=== PATIENT | female | born 1980 | race Caucasian/White ===

== ENCOUNTER 2022-11-17 06:07 | Day surgery (SDC) | payer BC, MEDICAID, SELFPAY ==
[2022-11-17] VITALS (8 sets, daily range): BP systolic 73–107; BP diastolic 36–69; PULSE 48–76; RESP 16–18; TEMP 36.2–36.4; O2SAT 97–100; BMI 28.8
[2022-11-17] MEDS: Lactated Ringers 1,000 ML 15 ML IV (06:20)
--- NOTE | 2022-11-17 07:22 | PCM.HP.BLA ---
History and Physical Date of Admission: 11/17/22 [facility] [id number] [place] [address] OFFICE VISIT Date of Service:? 10/30/22 MR#: [id number] Acct: [id number] Name:YA HAMMONDS Rep #: [id number] : 1980 ? ? Provider: Dr. Shmuel Green, DO Age/Sex:? 42/F ? ? Location: [facility] [place].[facility] Status: Signed Intake Intake Visit Reasons:?BILAT HANDS Chief Complaint: left hand pain Is patient in pain?: Yes (left hand ) Pain scale (1-10): 5 Allergies bupropion HCl [From Wellbutrin] Allergy (Verified 11/28/15 15:30) Rash PFSH Surgical History? Hx of tubal ligation Family History? Grandmother CancerAunt CancerGrandfather Heart disease Social History? Smoking Status:? Current every day smoker tobacco type: cigarettes alcohol intake:? never HPI BILAT HANDS Chief Complaint: left hand pain Details: Parts of this documentation were recorded by a scribe, this documentation accurately reflects the service provided and the decisions made by me, Dr. Shmuel Green, DO 10/30/22 0807. YA GALLEGOS is a 42 year old F here today for EMG review. Pt. advises she continues to have bilateral hand pain, numbness and tingling but states the left hand is worse.? She rates her pain 5/10 today. she treats pain at home with Ibuprofen with mild relief. She occasionally wear the braces she was given at night but states they do not help much.? Her fingers on bilateral hands continue to swell intermittently. Ortho Exam General General: Yes no acute distress Neurologic: Yes alert and Yes oriented x3 Psychologic: Yes reasonable and appropriate Right Wrist/Hand Skin/Wound: No Ecchymosis and Yes capillary refill normal Right Wrist: Yes Durken's Test and Phalen's; No Tinel's, Thenar Atrophy or Hypothenar Atrophy WRIST: brisk capilary refill 2/4 radial pulse 2/4 ulnar pulse 5/5 abduction finger flexion and extension/ and wage adjuster strength Left Wrist/Hand Skin/Wound: No Ecchymosis, Yes capillary refill normal and No erythema Left Wrist: Yes Durken's Test, Yes Tinel's and Yes Phalen's; No Thenar Atrophy and No Hypothenar Atrophy WRIST: brisk capilary refill 2/4 radial pulse 2/4 ulnar pulse 5/5 abduction finger flexion and extension/ and wage adjuster strength Supplemental Info 07/21/2022 EMG bilateral upper extremity: Severe left carpal tunnel right mild carpal tunnel Coding Level of Care Code Off vis,est,level 3 Diagnoses Bilateral carpal tunnel syndrome? G56.03 Assessment and Plan Assessment and Plan (1) Bilateral carpal tunnel syndrome: ?Status:?Acute Plan Patient edcauted that she has severe carpal tunnel of the left wrist and mild carpal tunnel of the right wrist. Recommended a left carpal tunnel release with a right carpal tunnel injection. SHe wishes to proceed with this. Reviewed the pre-operative plans with the patient. Risks and benefits of the procedure were fully explained, including but not limited to infection, neurovascular injury, continued pain,? stiffness, need for further surgery, re-injury, DVT, PE, general risks of anesthesia. The patient understands all the risks and does wish to proceed with written consent. Smoking increases risk of infection and slows down healing.? We also discussed incisional hypersensitivity and pillar pain continued symptoms . Tentative surgery date November 17, 2022 for a left open carpal tunnel release right carpal tunnel injection. Follow up post op or sooner if pain, swelling, numbness or associated symptoms, or concerns develop.? All questions answered. Patient in agreement of plan. 10/30/22 1038 <Electronically signed by Shmuel Green DO> Date Shmuel Green DO Cosigner Signature: Date (if applicable) ? CC: ? ~I have examined the patient and the H&P has been reviewed. There are no clinical changes since date of exam.
[2022-11-17] MEDS: Cefazolin 2 GM in 0.9% Normal Saline 100 ML IV (07:26)
[2022-11-17] MEDS: Lidocaine 1% /Epi 1:100 (20ml) 20 ML Vial (07:41)
[2022-11-17] MEDS: MethylPREDNISolone Acetate 40 MG/ML Vial IM (07:54)
--- NOTE | 2022-11-17 08:03 | OP.PCM_ITS ---
Operative Report Date of Procedure: 11/17/22 Preoperative diagnosis; left carpal tunnel syndrome Postoperative diagnosis; same Procedure: Left open carpal tunnel release Anesthesia: Local with MAC Tourniquet time; 10 minutes 250 mm Hg Complications: None Indication for procedure; This is a 42-year-old female with long-standing sym ptoms consistent with carpal tunnel syndrome the patient did have electrodiagnostic evidence of this and has failed conservative treatment. Risks benefits and alternatives were reviewed including risks of bleeding infection nerve artery tissue damage need for further surgery and continued pain and symptoms, hypersensitivity to scar and Pillar pain. Procedure; The patient was met in the preoperative holding area the operative extremity was identified by both patient and physician and was marked the patient was met by anesthesia and brought back to the operating room and transferred to the operating table in the supine position. Anesthesia was started. A well-padded tourniquet was placed on the operative upper extremity. The patient was prepped and draped in the usual sterile fashion. A timeout was called to ensure the proper patient procedure and extremity were being contemplated. 0.5 percent lidocaine with epinephrine was injected into the incisional area. An Esmarch was used to exsanguinate the extremity. The tourniquet was inflated to 250 mmHg. A midline incision was made with a 15 blade scalpel between the thenar and hypothenar eminence. This was carried down through the skin and subcutaneous tissue. Nelson retractors were then used, a deep blade scalpel was used to make a deep incision in the palmar aponeurosis. The nelson retractors were then placed deep to this and the transverse carpal ligament was identified a perforation was made with a scalpel and a Littler scissors were used to complete the release of the transverse carpal ligament distally under direct visualization with the tips facing ulnarly until the perivascular fat was reached. Then turning our attention proximally using a tension slide technique the proximal extent of the transverse carpal ligament was released . There was noted to be hypertrophy of the transverse carpal ligament without other findings. The wound was thoroughly irrigated and was closed with 4-0 nylon vertical mattress stitches. Dressing was applied in the form of xeroform 4 x 4, web roll and an henrique wrap. Tourniquet was let down there is no intraoperative complications patient tolerated the procedure well and was transferred to the PACU. All counts were correct.
--- NOTE | 2022-11-17 08:04 | DCINST_ITS ---
Discharge Instructions Diet Discharge Diet: No restrictions Dressing / Incision Call your doctor if you observe: Shortness of breath and Chest pain Additional Dressing/Incision Instructions:: Ice and elevate operative extremity next 72 hours. Keep dressing on clean and dry for 48 hours then may remove and allow warm soapy water to rinse over incision but do not submerge until sutures are out. Then apply bandaid over incision and change daily. encourage finger range of motion. Not lift more than 1/2 pound. Minimize narcotic use only as needed and directed, may use OTC NSAID and Tylenol to supplement/substitute for pain control. Follow Up Care Please Follow Up With: Shmuel Green DO When: 2 weeks Test Results: Test results from this visit will be discussed in further detail at your follow- up appointment, if applicable. Discharge Plan Admission Attending Provider: Shmuel Green Primary Care Provider: Barbara Mendoza Discharge Orders/Prescriptions Prescriptions: New oxycodone 5 mg tablet 5 mg PO Q4H PRN (Reason: pain) 3 Days Qty: 10 0RF No Action multivitamin Tablet 1 tab PO DAILY ibuprofen 400 mg Tablet 400 mg PO Q6H PRN (Reason: Pain) Referrals / Follow Up: Barbara Mendoza, COMPRESS MACHINE OPERATOR-C [Primary Care Provider] - Disposition Disposition (needs filled in before D/C Order can be placed): Home, Self Care
== END 2022-11-17 09:43 | disposition home or self-care (01) ==
LOC: SDC 06:08 → AC 06:10
PROVIDERS: PCP Nurse Practitioner Family; Referring Provider Orthopaedic Surgery; Visit Provider Orthopaedic Surgery
PROC: (CPT 64721; principal; 2022-11-17 07:15)
DX: G56.03 Carpal tunnel syndrome, bilateral upper limbs (principal); M79.641 Pain in right hand; M79.89 Other specified soft tissue disorders; M79.642 Pain in left hand; F17.210 Nicotine dependence, cigarettes, uncomplicated
CPT/HCPCS: 64721; 01810; J7120; J2405

== ENCOUNTER 2022-12-03 10:37 | Day surgery (SDC) | payer BC, MEDICAID, SELFPAY ==
[2022-11-24 15:45] LABS: Hematocrit 42.5 % (37-47); Hemoglobin 13.3 g/dL (12.0-15.0); Mean Corp Hgb Conc 31.3 g/dL (32-36); Mean Corpuscular Hgb 27.4 pg (27.0-32.0); Mean Corpuscular Volume 87.6 fL (81-99); Mean Platelet Vol. 10.7 fl (6.2-12.0); Platelet Count 234 K/mm3 (150-450); RBC Distribution Width CV 13.5 % (11.6-14.6); RBC Distribution Width SD 43.5 fl (35.1-43.9); Red Blood Count 4.85 M/mm3 (4.2-5.4); White Blood Count 10.1 K/mm3 (4.4-11.0)
[2022-12-03] VITALS (9 sets, daily range): BP systolic 97–125; BP diastolic 65–87; PULSE 44–67; RESP 16–18; TEMP 36.3–36.6; O2SAT 99–100; BMI 28.3
--- NOTE | 2022-12-03 | IMM_PTH ---
PATIENT: YA GALLEGOS LOC: [facility] [place] U#:[id number] AGE/SX: 42/F ROOM: RE12/03/[address]: Dr. Monica Bernstein DO : 1980 BED: DIS: 12/03/2022 SPEC #: [id number] RECD: 12/08/22 15:43 STATUS: ELBA RESamy #: [id number] LESIA: 12/03/22 00:[address]: Monica Bernstein DEPT: IMMUNOHISTOCHEMISTRY RECD BY: Snow Luna ENTERED: 12/08/22 15:44 SP TYPE: IMMUNO OTHR DR: Ya Mendoza, TECHNOLOGY DIRECTOR-C Tissues: A - UTERINE CERVIX LEEP B - Uterine cervix, NOS Procedures: p16 (initial) KI-67 (add) PHYSICIAN & INSTITUTION [place] [id number] SPECIMEN INFORMATION: Tissue Source: A ? Anterior cervix, B ? Posterior cervix Clinical Info: Pap smear and moderate dysplasia on colposcopy Specimen Number: [id number] A2 & B3 CPT code: 48110 x2, 78251 x2 METHODOLOGY: Deparaffinized sections of prefer/formalin-fixed tissue or PAP/DQ stained slides are incubated with monoclonal/polyclonal antibodies/oligonucleotide probes. Localization is made via biotin free immunoperoxidase method. Appropriate controls are performed and reacted as expected. Results on target cell population are indicated in the following table: RESULTS: ANTIBODY / CLONE RESULT Block A2 P16 (E6H4) positive, focal block staining Ki-67 (30-9) positive, high Block B3 P16 (E6H4) positive, focal block staining Ki-67 (30-9) positive, high These tests were developed and their performance characteristics determined by [facility]. They may not have been cleared or approved by the U.S. Food and Drug Administration. The FDA has determined that such clearance or approval is not necessary. The above immunohistochemical/dualISH markers are ordered and reviewed by the Pathologist. INTERPRETATION: A. Anterior cervix, LEEP conization: Moderate to severe squamous dysplasia. B. Posterior cervix, LEEP conization: Moderate squamous dysplasia Case has been reviewed in consultation with Dr. Mancini who concurs with the above diagnosis. IDC:ALEXEI SJ:cc 12/09/22
--- NOTE | 2022-12-03 07:22 | HP.PCM.OB_ITS ---
History and Physical Date of Admission: 12/03/22 HPI: 42-year-old female with abnormal Pap smear and moderate dysplasia on colposcopy plan for loop electrical excisional procedure. Denies headache or vision changes, chest pain or shortness of breath, nausea vomiting, diarrhea constipation, fevers or chills. METAL MACHINE SETTER history: G5, P4 Medical history: Denies Surgical history: 1. Tubal ligation Allergies: Wellbutrin Medications: None Family history: Noncontributory Social history: Tobacco user, denies alcohol or current drug use (former drug user) Review of system: Negative otherwise stated above Physical exam: Vitals pending General: No acute distress HEENT: Normal cephalic/atraumatic, PERRLA Cardiac: Regular rate and rhythm Respiratory: Clear to auscultation bilaterally Abdomen: Soft, nontender, nondistended Extremities: No edema Neurologic: Cranial nerves II through XII grossly intact, no focal deficits Musculoskeletal: Strength out of 5 throughout all extremities Assessment/plan: 42-year-old female with abnormal Pap smear and moderate dysplasia on colposcopy plan for loop electrical excisional procedure. All risk, benefits, alternatives discussed with patient: Risk include but are not limited to: Risk of bleeding when transfusion, infection, injury to surrounding tissue including bowel/bladder/major abdominal vessels, VTE, ICU admission. Patient aware and consented.
[2022-12-03] MEDS: Lactated Ringers 1,000 ML 15 ML IV (11:08)
--- NOTE | 2022-12-03 11:26 | PCM.OPRPT ---
Report of Operation Date of Procedure: 12/03/22 Pre-Operative Diagnosis: Moderate cervical dysplasia Post-Operative Diagnosis: Moderate cervical dysplasia Surgery/Procedure Performed:: Loop electrical excisional procedure Description of Surgical Findings:: Moderate uterine senses. Normal-appearing external genitalia. Lack of Lugol's staining from the 7-12 o'clock positions of the cervix. Type of Anesthesia: MAC Specimen's removed: Anterior cervix, posterior cervix, endocervix Estimated Blood Loss (mL): 5cc Fluids Replaced: 400cc Description of Procedure: Indications/Risks/Benefits: 42-year-old female with abnormal Pap smear and moderate dysplasia on colposcopy plan for loop electrical excisional procedure. All risk, benefits, alternatives discussed with patient: Risk include but are not limited to: Risk of bleeding when transfusion, infection, injury to surrounding tissue including bowel/bladder/major abdominal vessels, VTE, ICU admission.? Patient aware and consented. Procedure: Patient taken operating room and placed under MAC anesthesia. Patient placed in the dorsal lithotomy position prepped and draped in the usual sterile fashion. Coated speculum placed in the vagina. Lugol's used to coat cervix and vagina. Findings noted above. Large electrocautery loop utilized to remove anterior and posterior portions of the cervix. Portion of ectocervix also removed. Monopolar cautery used along the bed of the biopsy for hemostasis. Dilator placed through the cervix to confirm cervical opening. Biopsy bed hemostatic, Monsel's placed. At the end the procedure all needle, lap, sponge counts were correct. UOP: 30cc Complications None
--- NOTE | 2022-12-03 11:26 | PCM.DC ---
Discharge Instructions Diet Discharge Diet: No restrictions Activity Discharge Activity: Return to Normal Activity and May Shower May resume sexual activity in: 2 weeks Weight Bearing Status: Weight bearing as tolerated Lifting Restrictions: None Dressing / Incision Call your doctor if you observe: Fever of 101 or Higher, Change in Color, Inability to urinate, Using more than 1 pad per hour, Shortness of breath, Dizziness, Swelling in the ankles, Chest pain and Calf discomfort Follow Up Care Please Follow Up With: Monica Bernstein DO When: 1-2 week postoperative visit Test Results: Test results from this visit will be discussed in further detail at your follow-up appointment, if applicable. Discharge Plan Admission Primary Reason for Your Visit: CYDNEY Attending Provider: Monica Bernstein Primary Care Provider: Barbara Mendoza Discharge Orders/Prescriptions Prescriptions: No Action multivitamin Tablet 1 tab PO DAILY ibuprofen 400 mg Tablet 400 mg PO Q6H PRN (Reason: Pain) Referrals / Follow Up: Barbara Mendoza, RATING EXAMINER-C [Primary Care Provider] - Disposition Disposition (needs filled in before D/C Order can be placed): Home, Self Care
[2022-12-03] MEDS: FERRIC SUBSULFATE 8 GM SOLN (11:45)
[2022-12-03] MEDS: Iodine/Potassium Iodide 14ML Bottle 1 DRP TOPICAL (11:46)
--- NOTE | 2022-12-03 12:25 | CONE_PTH ---
PATIENT: YA GALLEGOS LOC: [facility] [place] U#:[id number] AGE/SX: 42/F ROOM: RE12/03/[address]: Dr. Monica Bernstein DO : 1980 BED: DIS: 12/03/2022 SPEC #: [id number] RECD: 12/03/22 14:03 STATUS: ELBA IVAN #: [id number] LESIA: 12/03/22 12:[address]: Monica Bernstein DEPT: SURGICAL PATHOLOGY RECD BY: Hiram Phoenix ENTERED: 12/04/22 12:39 SP TYPE: Leep Cone NADIRA DR: Ya Mendoza, CHINO-C Tissues: A - UTERINE CERVIX LEEP B - Uterine cervix, NOS C - Endocervical Procedures: Surgery Specimen Level IV Surgery Specimen Level V HEADER OPERATION: LEEP cone PRE-OP DIAGNOSIS: Pap smear and moderate dysplasia on colposcopy TISSUE SUBMITTED: A ? Anterior cervix, B ? Posterior cervix, C - Endocervix MICROSCOPIC DIAGNOSIS A. Anterior cervix, LEEP conization: Mild, moderate and severe squamous dysplasia with HPV changes (HGSIL and LENO I-III). The resection margins are free of dysplastic changes. See comment. B. Posterior cervix, LEEP conization: Mild and moderate squamous dysplasia with HPV changes (HGSIL and LENO I- II). Focal mild dysplastic changes noted at the resection margin of the larger piece. See comment. C. Endocervix, LEEP conization: Negative for dysplasia. SJ:antonio 12/07/2022 COMMENT A & B. Immunohistochemistry ([id number]) for surrogate HPV marker (p16) supports the above diagnosis. Case has been reviewed in consultation with Dr. Mancini who concurs with the above diagnosis. IDC:AM MICROSCOPIC DESCRIPTION Slides are reviewed. GROSS DESCRIPTION A - Received in fixative is one container labeled with the patient's name and designated anterior cervix. The specimen consists of a piece of balderas, indurated tissue measuring 1.6 x 1.7 cm and up to 0.5 cm in thickness. Also present in the container are two detached pieces of balderas, indurated tissue measuring in aggregate 1.2 x 1.2 x 0.2 cm. No mucosal lesion is identified. Non-mucosal surface is inked black. All three pieces are serially sectioned. The two smaller pieces are bisected. The largest piece is serially sectioned. The entire specimen is submitted in three cassettes as follows: 1 - two smaller pieces, 2 & 3??largest piece. B - Received in fixative is one container labeled with the patient's name and designated posterior cervix. The specimen consists of two bladeras, indurated pieces of tissue measuring 1 x 1 x 0.2 cm and 1.5 x 1.5 x 0.5 cm. Both pieces are serially sectioned. The entire specimen is submitted in three cassettes as follows: 1??smaller piece, 2 & 3 - larger piece. C - Received in fixative is one container labeled with the patient's name and designated endocervix. The specimen consists of an irregular piece of balderas, indurated tissue measuring 2.5 x 0.6 x 0.3 cm. No mucosal lesion is identified. Non-mucosal surface is inked black. The specimen is serially sectioned and submitted entirely in two cassettes. / SJ:rg 12/04/2022 TC:5 CPT: 07198 x 3
== END 2022-12-03 13:40 | disposition home or self-care (01) ==
LOC: SDC 10:44 → AC 10:45
PROVIDERS: PCP Nurse Practitioner Family; Referring Provider Student in an Organized Health Care Education/Training Program; Visit Provider Student in an Organized Health Care Education/Training Program
PROC: 0UBC7ZZ Excision of Cervix, Via Natural or Artificial Opening (ICD-10-PCS; CPT 57522; principal; 2022-12-03 12:10)
DX: N87.1 Moderate cervical dysplasia (principal); F17.200 Nicotine dependence, unspecified, uncomplicated
CPT/HCPCS: 57522; 00940; 36415; 85027; 86850; 86900; 86901; 88305; 88307; 88341; 88342; J7120; J2405